=== PATIENT | male | born 1950 | race Caucasian/White ===

== ENCOUNTER → 2018-12-22 | Outpatient (CLI) | payer MEDICARE ==
--- NOTE | 2018-12-22 11:38 | US ---
EXAMINATION TYPE: US abdomen complete DATE OF EXAM: 12/22/2018 COMPARISON: NONE CLINICAL HISTORY: Abdominal bloating R14.0. RUQ pain, NPO EXAM MEASUREMENTS: Liver Length: 14.8 cm Gallbladder Wall: 0.2 cm CBD: 0.4 cm Spleen: 7.9 cm Right Kidney: 8.5 x 4.6 x 5.3 cm Left Kidney: 10.3 x 4.9 x 4.3 cm Pancreas: Tail obscured by overlying bowel gas Liver: wnl Gallbladder: wnl Evidence for sonographic Moraes's sign: neg CBD: wnl Spleen: wnl Right Kidney: appears small in size compared to contralateral kidney Left Kidney: wnl Upper IVC: wnl Abd Aorta: No AAA visualized The liver is homogenous. The intrahepatic portion of the IVC and proximal abdominal aorta are within normal limits. There is no evidence of cholelithiasis. Common bile duct is unremarkable. The visu alized portions of the pancreas are homogenous. The spleen is unremarkable. Kidneys are free of hy dronephrosis. No renal lesions are seen. IMPRESSION: 1. Diminutive right kidney. Otherwise unremarkable study.
== END | disposition home or self-care (01) ==
LOC: RADUSWWP 10:32
PROVIDERS: ATTEND Family Medicine
DX: N27.9 Small kidney, unspecified (principal); R14.0 Abdominal distension (gaseous)
CPT/HCPCS: 76700

== ENCOUNTER → 2018-12-29 | Outpatient (CLI) | payer MEDICARE ==
--- NOTE | 2018-12-29 09:06 | CTL ---
EXAMINATION TYPE: CT Low Dose Lung DATE OF EXAM ORDERED: 12/29/2018 COMPARISON: None HISTORY: . Low Dose CT Lung Screening CT DLP: 110.[address] CTDI: 3.0 mGy IV CONTRAST USED: None. SCREENING VISIT: First visit COMPARISON: None. TECHNIQUE: Low dose computed tomography scan was performed through the chest at 1 millimeter thick se ctions and reconstructed images in the coronal plane at [address] DIAGNOSTIC QUALITY: Satisfactory FINDINGS: LUNG NODULES: Not presentLeft lung: no nodules identified.Right lung: no nodules identified. LUNGS: COPD: Severity: None Fibrosis: Severity:None Lymph nodes: None Other findings: None RIGHT PLEURAL SPACE: Effusion: None Calcification: None Thickening: None Pneumothorax: None LEFT PLEURAL SPACE: Effusion: None Calcification: None Thickening: None Pneumothorax: None HEART: Heart Size: Mildly enlarged Coronary calcification: Mild Pericardial effusion: None OTHER FINDINGS: Upper abdomen: No significant abnormality Bony thorax: Degenerative changes Supraclavicular region: No significant abnormalityOther: No significant abnormalityI IMPRESSION: No distinct pulmonary nodules identified. FOLLOW UP CT CHEST RECOMMENDATION: Follow-up screening in one year CT LUNG RAD: LUNG RAD CATEGORY 1 negative
== END | disposition home or self-care (01) ==
LOC: RADCTMAIN 08:13
PROVIDERS: ATTEND Family Medicine
DX: Z12.2 Encounter for screening for malignant neoplasm of respiratory organs (principal); Z87.891 Personal history of nicotine dependence

== ENCOUNTER → 2019-02-18 | Outpatient (CLI) | payer MEDICARE ==
--- NOTE | 2019-02-18 13:31 | NM ---
EXAMINATION TYPE: NM hepatobiliary w EF DATE OF EXAM: 02/18/2019 COMPARISON: Ultrasound abdomen 12/22/2018 HISTORY: Right upper quadrant pain TECHNIQUE: After the intravenous administration of 3.6 mCi Tc 99m Mebrofenin hepatobiliary scintigrap hy is performed. Immediate images post injection. FINDINGS: There is satisfactory initial accumulation of tracer by the liver. The gallbladder is visualized wit hin 4 minutes. The small bowel activity is noted within 40 minutes. At one hour 8 ounces of oral en sure plus is given to mimic CCK and gallbladder ejection fraction is calculated at 75 %, in the mariann l range. Therefore there is no scintigraphic evidence of cystic or common bile duct obstruction to s uggest acute cholecystitis or gallbladder dyskinesia. IMPRESSION: Exam is within normal limits.
== END | disposition home or self-care (01) ==
LOC: RADNMMAIN 06:52
PROVIDERS: ATTEND Family Medicine
DX: R10.11 Right upper quadrant pain (principal)
CPT/HCPCS: 78226; A9537

== ENCOUNTER → 2019-05-25 | Outpatient (CLI) | payer MEDICARE ==
--- NOTE | 2019-05-26 12:49 | ECHOF ---
Referral Reason:I27.23 Pulmonary Hypertension MEASUREMENTS -------- HEIGHT: 175.3 cm WEIGHT: 89.8 kg BP: RVIDd: 4.8 cm (< 3.3) IVSd: 1.3 cm (0.6 - 1.1) LVIDd: 4.2 cm (3.9 - 5.3) LVPWd: 1.4 cm (0.6 - 1.1) IVSs: 1.7 cm LVIDs: 3.0 cm LVPWs: 2.0 cm LAESV Index (A-L): 17.04 ml/m Ao Diam: 2.7 cm (2.0 - 3.7) AV Cusp: 2.2 cm (1.5 - 2.6) LA Diam: 3.5 cm (2.7 - 3.8) MV E Anjum: 0.75 m/s MV DecT: 136 ms MV A Anjum: 0.86 m/s MV E/A Ratio: 0.87 RAP: 5.00 mmHg RVSP: 21.53 mmHg FINDINGS -------- Sinus rhythm. The left ventricular size is normal. There is mild concentric left ventricular hypertrophy. Overa ll left ventricular systolic function is low-normal with, an EF between 50 - 55 %. The diastolic fi lling pattern is normal for the age of the patient. The right ventricle is moderately enlarged. Left atrium is normal size by volume. The right atrium is mildly enlarged. Lumason used Interatrial and interventricular septum intact. The aortic valve was not well visualized. There is no evidence of aortic regurgitation. There is no evidence of aortic stenosis. Mild mitral annular calcification present. There is trace mitral regurgitation. Mild tricuspid regurgitation present. There is no evidence of pulmonary hypertension. The right v entricular systolic pressure, as measured by Doppler, is 21.53mmHg. There is no pulmonic regurgitation present. The aortic root size is normal. The inferior vena cava was not well visualized. There is no pericardial effusion. CONCLUSIONS -------- 1. Sinus rhythm. 2. The left ventricular size is normal. 3. There is mild concentric left ventricular hypertrophy. 4. Overall left ventricular systolic function is low-normal with, an EF between 50 - 55 %. 5. The diastolic filling pattern is normal for the age of the patient. 6. The right ventricle is moderately enlarged. 7. Left atrium is normal size by volume. 8. The right atrium is mildly enlarged. 9. Lumason used 10. Interatrial and interventricular septum intact. 11. The aortic valve was not well visualized. 12. There is no evidence of aortic regurgitation. 13. There is no evidence of aortic stenosis. 14. Mild mitral annular calcification present. 15. There is trace mitral regurgitation. 16. Mild tricuspid regurgitation present. 17. There is no evidence of pulmonary hypertension. 18. The right ventricular systolic pressure, as measured by Doppler, is 21.53mmHg. 19. There is no pulmonic regurgitation present. 20. The aortic root size is normal. 21. The inferior vena cava was not well visualized. 22. There is no pericardial effusion. CHEMICAL PROCESSING LABORER: Virginia Guadalupe RDCS
== END | disposition home or self-care (01) ==
LOC: RADECHMAIN 14:42
PROVIDERS: ATTEND Internal Medicine Sleep Medicine
DX: I07.1 Rheumatic tricuspid insufficiency (principal)
CPT/HCPCS: C8929; Q9950; 93306

== ENCOUNTER 2019-08-19 23:08 | Emergency (ER) | payer MEDICARE ==
[2019-08-19] MEDS ORDERED: IPRATROPIUM-ALBUTEROL 3 ML NEB INHALATION STA (23:58)
[2019-08-19] MEDS ORDERED: SODIUM CHLORIDE 0.9% 1,000 ML IV STA (23:58)
[2019-08-19] MEDS ORDERED: methylPREDNISolone SOD SUCCI 125 MG/2 ML VIAL IV STA (23:58)
--- NOTE | 2019-08-20 00:04 | ED ---
SOB HPI - General Chief Complaint: Shortness of Breath Stated Complaint: JUDITH Time Seen by Provider: 08/19/19 23:18 Source: EMS Mode of arrival: EMS - History of Present Illness Initial Comments: Aric is a 68-year-old male with a history of COPD for which she has a rescue inhaler and nebulizers at home. He is not oxygen dependent. Patient presents the ER today via EMS for evaluation of shortness of breath. Patient reports he's had progressively worsening shortness of breath throughout the day today, he's taken his usual medications including Mucinex, he's used both his rescue inhaler and his nebulizer with no improvement in his symptoms. He attempted to go to bed by his difficulty breathing got worse and he was unable to sleep comfortably in became anxious about her shortness breath and decided to come the ER for further evaluation. He reports subjective fevers no measured fevers. Mild body aches. Denies any chest pain or palpitations. Denies any nausea or v omiting. - Related Data Previous Rx's Medication Instructions Recorded predniSONE [Deltasone] 40 mg PO DAILY 5 Days #10 tablet 08/20/19 Allergies Allergy/AdvReac Type Severity Reaction Status Date / Time No Known Allergies Allergy Verified 08/19/19 23:15 Review of Systems ROS Statement: Those systems with pertinent positive or pertinent negative responses have been documented in the HPI. ROS Other: All systems not noted in ROS Statement are negative. Past Medical History Past Medical History: COPD, Hyperlipidemia, Hypertension, Prostate Disorder History of Any Multi-Drug Resistant Organisms: None Reported Additional Past Surgical History / Comment(s): cyst from left ear removed, Past Psychological History: No Psychological Hx Reported Smoking Status: Former smoker Past Alcohol Use History: None Reported Past Drug Use History: None Reported General Exam - General Exam Comments Initial Comments: Physical Exam GENERAL: Patient is well-developed and well-nourished. Patient is nontoxic and well- hydrated and is in no distress. HENT: Normocephalic, Atraumatic. EYES: PERRL, EOMI PULMONARY: Wheezing in all lung tillman Tachypnea CARDIOVASCULAR: There is a regular rate and rhythm without any murmurs gallops or rubs. ABDOMEN: Soft and nontender with normal bowel sounds. SKIN: Skin is clear with no lesions or rashes and otherwise unremarkable. : Deferred NEUROLOGIC: Patient is alert and oriented x3. Moving all extremities spontaneously MUSCULOSKELETAL: Normal extremities with adequate strength and full range of motion. No lower e xtremity swelling or edema. No calf tenderness. PSYCHIATRIC: Normal psychiatric evaluation. Course Vital Signs 08/19/19 08/20/19 08/20/19 23:11 00:40 00:50 Temperature 97.7 F 98.0 F Pulse Rate 80 87 85 Respiratory 18 20 Rate Blood Pressure 134/68 137/68 O2 Sat by Pulse 96 97 Oximetry 08/20/19 00:51 Temperature Pulse Rate 90 Respiratory Rate Blood Pressure O2 Sat by Pulse Oximetry Medical Decision Making - Medical Decision Making She was seen and evaluated history was obtained from patient, patient was subjective shortness of breath, mild hypoxia with oxygen saturations in the low 90s however he does have COPD. Labs, influenza swabs and chest x-ray were ordered Influenza and B were negative, chest x-ray no signs of pneumonia or any acute findings Labs are relatively unremarkable aside patient was reassessed after receiving a DuoNeb treatment. Patient reports feeling much better and is eager for discharge home. Patient comfortable plan for discharge home on oral antibiotics, close return parameters were discussed with patient and at bedside. 8 for follow-up was discussed patient was discharged home in stable condition. - Lab Data Result diagrams: 08/19/19 23:20 08/19/19 23:20 Lab Results 08/19/19 08/19/19 08/19/19 Range/Units 23:20 23:20 23:20 WBC 9.2 (3.8-10.6) k/uL RBC 4.51 (4.30-5.90) m/uL Hgb 13.9 (13.0-17.5) gm/dL Hct 41.0 (39.0-53.0) % MCV 91.1 (80.0-100.0) fL MCH 30.8 (25.0-35.0) pg MCHC 33.8 (31.0-37.0) g/dL RDW 13.8 (11.5-15.5) % Plt Count 260 (150-450) k/uL Neutrophils % 61 % Lymphocytes % 18 % Monocytes % 8 % Eosinophils % 7 % Basophils % 2 % Neutrophils # 5.6 (1.3-7.7) k/uL Lymphocytes # 1.7 (1.0-4.8) k/uL Monocytes # 0.8 (0-1.0) k/uL Eosinophils # 0.7 (0-0.7) k/uL Basophils # 0.2 (0-0.2) k/uL Sodium 133 L (137-145) mmol/L Potassium 4.4 (3.5-5.1) mmol/L Chloride 102 (98-107) mmol/L Carbon Dioxide 22 (22-30) mmol/L Anion Gap 9 mmol/L BUN 23 H (9-20) mg/dL Creatinine 1.05 (0.66-1.25) mg/dL Est GFR (CKD-EPI)AfAm 85 (>60 ml/min/1.73 sqM) Est GFR (CKD-EPI)NonAf 74 (>60 ml/min/1.73 sqM) Glucose 105 H (74-99) mg/dL Calcium 9.8 (8.4-10.2) mg/dL Total Bilirubin 0.6 (0.2-1.3) mg/dL AST 29 (17-59) U/L ALT 30 (4-49) U/L Alkaline Phosphatase 69 (38-126) U/L Total Protein 6.6 (6.3-8.2) g/dL Albumin 4.0 (3.5-5.0) g/dL Influenza Type A RNA Not Detected (Not Detectd) Influenza Type B (PCR) Not Detected (Not Detectd) Disposition Clinical Impression: COPD exacerbation Disposition: HOME SELF-CARE Condition: Stable Additional Instructions: Continue breathing treatments every 4-6h Prednisone daily x5 days Follow up with PCP Return to ER for any worsening or development of new or concerning symptoms Prescriptions: predniSONE [Deltasone] 40 mg PO DAILY 5 Days #10 tablet Is patient prescribed a controlled substance at d/c from ED?: No Referrals: Edi Mcdonald MD [Primary Care Provider] - 1-2 days
[2019-08-20 00:13] LABS: Basophils # (A) 0.2 k/uL (0-0.2); Basophils % (A) 2 %; Eosinophils # (A) 0.7 k/uL (0-0.7); Eosinophils % (A) 7 %; HGB 13.9 gm/dL (13.0-17.5); Lymphocytes # (A) 1.7 k/uL (1.0-4.8); Lymphocytes % (A) 18 %; MCH 30.8 pg (25.0-35.0); MCHC 33.8 g/dL (31.0-37.0); MCV 91.1 fL (80.0-100.0); Mean Platelet Volume 7.7; Monocytes # (A) 0.8 k/uL (0-1.0); Monocytes % (A) 8 %; Neutrophils # (A) 5.6 k/uL (1.3-7.7); Neutrophils % (A) 61 %; Platelet Count 260 k/uL (150-450); RBC 4.51 m/uL (4.30-5.90); RDW 13.8 % (11.5-15.5); WBC 9.2 k/uL (3.8-10.6)
[2019-08-20 00:19] LABS: Calcium 9.8 mg/dL (8.4-10.2); Potassium 4.4 mmol/L (3.5-5.1); Total Bilirubin 0.6 mg/dL (0.2-1.3); Total Protein 6.6 g/dL (6.3-8.2)
--- NOTE | 2019-08-20 00:21 | XR ---
EXAMINATION TYPE: XR chest 2V DATE OF EXAM: 08/20/2019 COMPARISON: NONE HISTORY: Difficulty breathing TECHNIQUE: 2 views FINDINGS: Heart is normal. Lungs are clear of infiltrate. There is no pleural effusion. Bony thorax i s intact. There are no hilar masses. IMPRESSION: No active cardiopulmonary disease. Normal heart.
[2019-08-20 00:51] VITALS: BP 137/68; PULSE 90; RESP 20; TEMP 98
== END 2019-08-20 01:37 | disposition home or self-care (01) ==
LOC: EC 23:08
DX: J44.1 Chronic obstructive pulmonary disease with (acute) exacerbation (principal); R09.02 Hypoxemia; Z87.891 Personal history of nicotine dependence
CPT/HCPCS: 36415 ×2; 94640; 93005; 80053; 85025; 87040; 87502; 71046; 99285; 96374; 96361; J2930

== ENCOUNTER 2020-01-07 19:48 | Inpatient (IN) | payer MEDICARE ==
[2020-01-07] MEDS ORDERED: SODIUM CHLORIDE 0.9% 500 ML 500 ML IV STA (20:28)
[2020-01-07] MEDS ORDERED: methylPREDNISolone SOD SUCCI 125 MG/2 ML VIAL IV STA (20:28)
[2020-01-07] MEDS ORDERED: IPRATROPIUM-ALBUTEROL 3 ML NEB INHALATION STA (20:28)
[2020-01-07] MEDS ORDERED: ALBUTEROL NEB (CONC) 2.5 MG/0.5 ML INHALATION STA (20:29)
[2020-01-07] MEDS ORDERED: ONDANSETRON 4 MG/2 ML VIAL IVP STA (20:29)
[2020-01-07] MEDS ORDERED: MORPHINE SULFATE 4 MG/ML SYRINGE IVP STA (20:29)
[2020-01-07 20:44] LABS: Basophils % (A) 0 %; Eosinophils # (A) 0.1 k/uL (0-0.7); Eosinophils % (A) 1 %; HGB 14.9 gm/dL (13.0-17.5); Lymphocytes # (A) 1.1 k/uL (1.0-4.8); Lymphocytes % (A) 10 %; MCH 31.8 pg (25.0-35.0); MCHC 33.9 g/dL (31.0-37.0); Mean Platelet Volume 7.5; Monocytes # (A) 0.7 k/uL (0-1.0); Monocytes % (A) 6 %; Neutrophils # (A) 8.8 k/uL (1.3-7.7); Neutrophils % (A) 81 %; Platelet Count 256 k/uL (150-450); RBC 4.68 m/uL (4.30-5.90); RDW 13.5 % (11.5-15.5); WBC 10.9 k/uL (3.8-10.6)
--- NOTE | 2020-01-07 20:47 | ED ---
General Adult HPI - General Chief complaint: Upper Respiratory Infection Stated complaint: Poss broken rib Time Seen by Provider: 01/07/20 20:02 Source: patient Mode of arrival: wheelchair Limitations: no limitations - History of Present Illness Initial comments: 69-year-old male patient with past medical history significant for COPD and hypertension presents to the emergency department today for evaluation of shortness of breath and cough. Patient states his been sick for a little over 2 weeks. States he did see his primary care physician and his specification consultant. States that yesterday he saw the specification consultant and was started on home oxygen therapy as well as multiple prescriptions. Prescriptions included doxycycline, theophylline, and taper of prednisone. Patient states that today he felt worse. Is having difficulty ambulating and performing his normal daily tasks. Patient is reporting cough with occasional sputum production. Denies fever or chills. States he is also having very sharp stabbing left pain to the left flank region. Denies any injuries. Denies any hemoptysis. Denies any hematuria, dysuria, urinary frequency, urinary urgency. Patient denies any recent rash, abdominal pain, nausea, vomiting, diarrhea, constipation, numbness, tingling, dizziness, weakness, headache, visual changes, or any other complaints. - Related Data Previous Rx's Medication Instructions Recorded predniSONE [Deltasone] 40 mg PO DAILY 5 Days #10 tablet 08/20/19 Allergies Allergy/AdvReac Type Severity Reaction Status Date / Time No Known Allergies Allergy Verified 08/19/19 23:15 Review of Systems ROS Statement: Those systems with pertinent positive or pertinent negative responses have been documented in the HPI. ROS Other: All systems not noted in ROS Statement are negative. Past Medical History Past Medical History: COPD, Hyperlipidemia, Hypertension, Prostate Disorder History of Any Multi-Drug Resistant Organisms: None Reported Additional Past Surgical History / Comment(s): cyst from left ear removed, Past Psychological History: No Psychological Hx Reported Smoking Status: Former smoker Past Alcohol Use History: None Reported Past Drug Use History: None Reported General Exam Limitations: no limitations General appearance: alert, in no apparent distress, other (This is a well- developed, well-nourished adult male patient in no acute distress. Vital signs upon presentation are temperature 98.2F, pulse 81, respirations 18, blood pressure 155/77, pulse ox 98% on room air.) Eye exam: Present: normal appearance, PERRL, EOMI. Absent: scleral icterus, conjunctival injection, periorbital swelling ENT exam: Present: normal exam, normal oropharynx, mucous membranes moist Respiratory exam: Present: respiratory distress (Mild respiratory distress exhibited by tachypnea, abdominal accessory muscle use), wheezes (Expiratory wheezing in the posterior lung tillman), accessory muscle use. Absent: normal lung sounds bilaterally, rales, rhonchi, stridor Cardiovascular Exam: Present: regular rate, normal rhythm, normal heart sounds. Absent: systolic murmur, diastolic murmur, rubs, gallop, clicks GI/Abdominal exam: Present: soft, normal bowel sounds. Absent: distended, tenderness, guarding, rebound, rigid Neurological exam: Present: alert, oriented X3, CN II-XII intact Psychiatric exam: Present: normal affect, normal mood Skin exam: Present: warm, dry, intact, normal color. Absent: rash Course Vital Signs 01/07/20 01/07/20 01/07/20 19:53 20:15 21:27 Temperature 98.2 F 98.5 F Pulse Rate 81 75 73 Respiratory 18 26 H Rate Blood Pressure 155/77 142/92 O2 Sat by Pulse 98 98 Oximetry 01/07/20 01/07/20 01/07/20 21:36 21:40 23:14 Temperature 98.2 F Pulse Rate 73 72 78 Respiratory 20 32 H Rate Blood Pressure 155/83 155/97 O2 Sat by Pulse Oximetry EKG Findings - EKG Comments: EKG Findings:: EKG obtained at 2006 shows normal sinus rhythm with a ventricular rate is 77, MI interval 1:30, QRS duration 84, QT 366, QTC 414. No evidence of ST elevation or depression. Medical Decision Making - Medical Decision Making 69-year-old male patient presents to the emergency department today for evaluation of left posterior rib pain, shortness of breath, cough. Patient states that symptoms are the last 2 weeks. He has completed steroids, antibiotics, just started a new course yesterday. Physical examination reveals tachypnea, abdominal accessory muscle use, expiratory wheezing. Labs reviewed and are unremarkable. Chest x-ray is obtained and shows no acute cardiopulmonary process. Left rib x-rays were negative. Upon reevaluation does report mild improvement of his breathing but is still having significant pain to the left posterior ribs. We will admit for COPD exacerbation and further evaluation. Coronavirus testing is pending. - Lab Data Result diagrams: 01/07/20 20:15 01/07/20 20:15 Lab Results 01/07/20 01/07/20 01/07/20 Range/Units 20:15 20:15 20:15 WBC 10.9 H (3.8-10.6) k/uL RBC 4.68 (4.30-5.90) m/uL Hgb 14.9 (13.0-17.5) gm/dL Hct 44.0 (39.0-53.0) % MCV 94.0 (80.0-100.0) fL MCH 31.8 (25.0-35.0) pg MCHC 33.9 (31.0-37.0) g/dL RDW 13.5 (11.5-15.5) % Plt Count 256 (150-450) k/uL Neutrophils % 81 % Lymphocytes % 10 % Monocytes % 6 % Eosinophils % 1 % Basophils % 0 % Neutrophils # 8.8 H (1.3-7.7) k/uL Lymphocytes # 1.1 (1.0-4.8) k/uL Monocytes # 0.7 (0-1.0) k/uL Eosinophils # 0.1 (0-0.7) k/uL Basophils # 0.0 (0-0.2) k/uL PT (9.0-12.0) sec INR (<1.2) APTT (22.0-30.0) sec Sodium (137-145) mmol/L Potassium (3.5-5.1) mmol/L Chloride (98-107) mmol/L Carbon Dioxide (22-30) mmol/L Anion Gap mmol/L BUN (9-20) mg/dL Creatinine (0.66-1.25) mg/dL Est GFR (CKD-EPI)AfAm (>60 ml/min/1.73 sqM) Est GFR (CKD-EPI)NonAf (>60 ml/min/1.73 sqM) Glucose (74-99) mg/dL Plasma Lactic Acid Hoang 1.3 (0.7-2.0) mmol/L Calcium (8.4-10.2) mg/dL Troponin I <0.012 (0.000-0.034) ng/mL 01/07/20 01/07/20 Range/Units 20:15 20:15 WBC (3.8-10.6) k/uL RBC (4.30-5.90) m/uL Hgb (13.0-17.5) gm/dL Hct (39.0-53.0) % MCV (80.0-100.0) fL MCH (25.0-35.0) pg MCHC (31.0-37.0) g/dL RDW (11.5-15.5) % Plt Count (150-450) k/uL Neutrophils % % Lymphocytes % % Monocytes % % Eosinophils % % Basophils % % Neutrophils # (1.3-7.7) k/uL Lymphocytes # (1.0-4.8) k/uL Monocytes # (0-1.0) k/uL Eosinophils # (0-0.7) k/uL Basophils # (0-0.2) k/uL PT 10.0 (9.0-12.0) sec INR 1.0 (<1.2) APTT 21.5 L (22.0-30.0) sec Sodium 133 L (137-145) mmol/L Potassium 5.3 H (3.5-5.1) mmol/L Chloride 101 (98-107) mmol/L Carbon Dioxide 20 L (22-30) mmol/L Anion Gap 12 mmol/L BUN 27 H (9-20) mg/dL Creatinine 0.95 (0.66-1.25) mg/dL Est GFR (CKD-EPI)AfAm >90 (>60 ml/min/1.73 sqM) Est GFR (CKD-EPI)NonAf 82 (>60 ml/min/1.73 sqM) Glucose 122 H (74-99) mg/dL Plasma Lactic Acid Hoang (0.7-2.0) mmol/L Calcium 9.7 (8.4-10.2) mg/dL Troponin I (0.000-0.034) ng/mL - Radiology Data Radiology results: report reviewed, image reviewed X-ray of the left ribs are obtained. Report is reviewed in its entirety. Impression by Dr. Cancino shows negative left wrist exam. Two-view x-ray of the chest is obtained. Report was reviewed in its entirety. Impression by Dr. Ostermann shows no active cardiopulmonary disease. Normal heart. No change. Disposition Clinical Impression: COPD exacerbation Disposition: ADMITTED IP TO THIS HOSP Condition: Serious Decision to Admit Reason: Admit from EC Decision Date: 01/07/20 Decision Time: 23:43
[2020-01-07 20:56] LABS: African American GFR (CKD) >90 (>60 ml/min/1.73 sqM); Anion Gap 12 mmol/L; Blood Urea Nitrogen 27 mg/dL (9-20); Calcium 9.7 mg/dL (8.4-10.2); Carbon Dioxide 20 mmol/L (22-30); Chloride 101 mmol/L (98-107); Glucose 122 mg/dL (74-99); Non-African American GFR(CKD) 82 (>60 ml/min/1.73 sqM); Potassium 5.3 mmol/L (3.5-5.1); Sodium 133 mmol/L (137-145)
[2020-01-07 20:58] LABS: Partial Thromboplastin Time 21.5 sec (22.0-30.0)
--- NOTE | 2020-01-07 21:36 | XR ---
EXAMINATION TYPE: XR chest 2V DATE OF EXAM: 01/07/2020 COMPARISON: 01/05/2020 HISTORY: Rib pain TECHNIQUE: 2 views FINDINGS: Heart and mediastinum are normal. Lungs are clear. Diaphragm is normal. Costophrenic angles are clear. Bony thorax appears intact. IMPRESSION: No active cardiopulmonary disease. Normal heart. No change.
--- NOTE | 2020-01-07 21:37 | XR ---
EXAMINATION TYPE: XR ribs LT DATE OF EXAM: 01/07/2020 COMPARISON: NONE HISTORY: Left rib pain TECHNIQUE: 5 views FINDINGS: There is no pleural effusion or pneumothorax. Left lung is clear of infiltrate. I see no ev idence of a left-sided rib fracture. Left shoulder appears intact. IMPRESSION: Negative left rib exam.
[2020-01-07] MEDS ORDERED: HYDROmorphone 0.5 MG/0.5 ML SYRINGE IVP STA (22:03)
[2020-01-07] MEDS ORDERED: KETOROLAC 30 MG/ML 1 ML VIAL IVP STA (22:03)
[2020-01-07] MEDS ORDERED: IPRATROPIUM-ALBUTEROL 3 ML NEB INHALATION PRN (23:41)
[2020-01-08] MEDS: methylPREDNISolone SOD SUCCI 125 MG/2 ML VIAL IV SCH ×5 (00:53→23:15)
[2020-01-08] MEDS: HYDROcodone/APAP 5-325MG 1 EACH TAB PO PRN (05:57)
[2020-01-08] MEDS: IPRATROPIUM-ALBUTEROL 3 ML NEB INHALATION SCH ×4 (09:08→21:55)
[2020-01-08] MEDS ORDERED: PROMETHAZINE 25 MG TAB PO PRN (09:21)
--- NOTE | 2020-01-08 09:59 | P.HPIM ---
History of Present Illness This is a pleasant 69 years old male with past medical history of COPD and he follows up with Dr. Garcia, hyperlipidemia, hypertension. Presents because of dyspnea and cough with phlegm for about 2 weeks duration, although he had it for sometime but it got worse over the last 2 weeks. He saw his manager customer Dr. Garcia (originally he follows up with Dr. gates) about 3-4 days ago when he notices oxygen was low, he put him on doxycycline, theophylline and Taper prednisone as well as home oxygen with with no improvement he decided to come to Hospital proceed. Especially patient was starting complaining of from stabbing like pain on the left lower chest with coughing His cough is with clear phlegm with little tinge ofwith little. No change in urine or bowel habits. No fever He quit smoking about 2-1/2 years ago. No alcohol or illicit drugs vitals are stable and he is saturating 95% on 2 L oxygen via Nasal cannula. WBCs 10.9 K, INR 1.0, sodium 133, potassium 5.3, creatinine 0.9. Troponin less than 0.012 Review of Systems CONSTITUTIONAL: No fever, no malaise, no fatigue. HEENT: No recent visual problems or hearing problems. Denied any sore throat. CARDIOVASCULAR: No orthopnea, PND, no palpitations, no syncope. PULMONARY: No shortness of breath, no cough, no hemoptysis. GASTROINTESTINAL: No diarrhea, no nausea, no vomiting, no abdominal pain. Normoactive bowel sounds. NEUROLOGICAL: No headaches, no weakness, no numbness. HEMATOLOGICAL: Denies any bleeding or petechiae. GENITOURINARY: Denies any burning micturition, frequency, or urgency. MUSCULOSKELETAL/RHEUMATOLOGICAL: Denies any joint pain, swelling, or any muscle pain. ENDOCRINE: Denies any polyuria or polydipsia. Past Medical History Past Medical History: COPD, Hyperlipidemia, Hypertension, Prostate Disorder History of Any Multi-Drug Resistant Organisms: None Reported Additional Past Surgical History / Comment(s): cyst from left ear removed, Past Psychological History: No Psychological Hx Reported Smoking Status: Former smoker Past Alcohol Use History: None Reported Past Drug Use History: None Reported Medications and Allergies Home Medications Medication Instructions Recorded Confirmed Type predniSONE [Deltasone] 40 mg PO DAILY 5 Days #10 tablet 08/20/19 Rx Allergies Allergy/AdvReac Type Severity Reaction Status Date / Time No Known Allergies Allergy Verified 08/19/19 23:15 Physical Exam Vitals: Vital Signs Temp Pulse Pulse Resp BP BP Pulse Ox 01/08/20 09:27 84 01/08/20 09:08 80 01/08/20 07:00 97.9 F 82 20 165/75 95 01/08/20 00:27 98.0 F 79 19 151/77 94 L 01/07/20 23:14 98.2 F 78 32 H 155/97 01/07/20 21:40 72 01/07/20 21:36 73 20 155/83 01/07/20 21:27 73 01/07/20 20:15 98.5 F 75 26 H 142/92 98 01/07/20 19:53 98.2 F 81 18 155/77 98 Intake and Output 01/07/20 01/08/20 01/08/20 22:59 06:59 14:59 Other: # Voids 2 Weight 93.44 kg 93.44 kg GENERAL: The patient is alert and oriented x3, not in any acute distress. Well developed, well nourished. HEENT: Pupils are round and equally reacting to light. EOMI. No scleral icterus. No conjunctival pallor. Normocephalic, atraumatic. No pharyngeal erythema. No thyromegaly. CARDIOVASCULAR: S1 and S2 present. No murmurs, rubs, or gallops. -PULMONARY: Chest is clear to auscultation, bilateral scattered wheezing ABDOMEN: Soft, nontender, nondistended, normoactive bowel sounds. No palpable organomegaly. MUSCULOSKELETAL: No joint swelling or deformity. EXTREMITIES: No cyanosis, clubbing, or pedal edema. NEUROLOGICAL: Gross neurological examination did not reveal any focal deficits. SKIN: No rashes. No petechiae Results CBC & Chem 7: 01/07/20 20:15 01/07/20 20:15 Labs: Abnormal Lab Results - Last 24 Hours (Table) 01/07/20 01/07/20 01/07/20 Range/Units 20:15 20:15 20:15 WBC 10.9 H (3.8-10.6) k/uL Neutrophils # 8.8 H (1.3-7.7) k/uL APTT 21.5 L (22.0-30.0) sec Sodium 133 L (137-145) mmol/L Potassium 5.3 H (3.5-5.1) mmol/L Carbon Dioxide 20 L (22-30) mmol/L BUN 27 H (9-20) mg/dL Glucose 122 H (74-99) mg/dL Thrombosis Risk Factor Assmnt - Choose All That Apply Each Factor Represents 1 point: Obesity (BMI >25) Each Risk Factor Represents 2 Points: Age 61-74 years Thrombosis Risk Factor Assessment Total Risk Factor Score: 3 Thrombosis Risk Factor Assessment Level: Moderate Risk Assessment and Plan Assessment: Acute COPD exacerbation Acute hypoxic respiratory failure Left lower lateral chest wall pain with coughing Hypertension Hyperlipidemia Plan: This is a pleasant 69 years old male who presents with COPD acute exacerbation. Continue with steroids, doxycycline and oxygen as needed. Pulmonary consult Labs and medication were reviewed.. Continue same treatment. Continue with symptomatic treatment. Resume home medication. Monitor lytes and vitals. DVT and GI prophylaxis. Further recommendations of the clinical course of the patient DVT prophylaxis: Subcutaneous Lovenox GI prophylaxis: Pepcid
[2020-01-08] MEDS: MORPHINE SULFATE 4 MG/ML SYRINGE IVP PRN ×2 (10:09→15:00)
[2020-01-08] MEDS: AZITHROMYCIN 500 MG TAB PO SCH (10:10)
[2020-01-08] MEDS: ENOXAPARIN 40 MG/0.4 ML SYRINGE SQ SCH (10:14)
[2020-01-08] MEDS: guaiFENesin-DM 100-10MG/5ML 10 ML CUP PO SCH ×3 (11:21→23:15)
--- NOTE | 2020-01-08 11:23 | CT ---
EXAMINATION TYPE: CT chest angio for PE DATE OF EXAM: 01/08/2020 COMPARISON: Previous study dated 12/29/2018. HISTORY: Dyspnea CT DLP: 511.6 mGycm Automated exposure control for dose reduction was used. CONTRAST: CT Chest for pulmonary embolism performed with with IV Contrast, patient injected with 100 mL of Isov ue 370. FINDINGS: There has some atelectasis along the major fissure on the right. There is breathing motion artifact on this study. No parenchymal lesion is seen. There is no significant axillary, mediastinal or hilar adenopathy. There is no evidence of pulmonary embolus. The aortic root is mildly prominent measuring 3.8 cm. The remainder the aorta is normal in caliber wi thout evidence of dissection. There is no evidence of pleural or pericardial fluid. The heart is not enlarged. Limited views of the upper abdomen are degraded due to 2 patient respiration show no definite abnorma lity. There is hypertrophic spondylosis within the spine. IMPRESSION: 1. THIS EXAMINATION IS DEGRADED BY EXCESSIVE BREATHING MOTION ARTIFACT. 2. THIS EXAMINATION IS NEGATIVE FOR PULMONARY EMBOLUS. 3. MILD ECTASIA OF THE ROOT OF THE AORTA.
--- NOTE | 2020-01-08 12:52 | P.CNPUL ---
History of Present Illness Consult date: 01/08/20 Reason for consult: dyspnea, COPD History of present illness: a 69-year-old male patient, who was hospitalized yesterday because of worsening shortness of breath. The patient was diagnosed with COPD exacerbation and was admitted to the hospital for that reason to optimize his overall poor status. I had the chance to evaluate this patient my office for the first time on 12/23/2019. He was coming to see me in the office to establish himself as a patient. The patient suffers from COPD and obstructive sleep apnea. He has seen Dr. Valladares and he was not satisfied with his services and he wants establish himself with us in our office. In summary, the patient is a ex-smoker. He cares about [id number] smoking history and the patient has quit smoking and around 2 years ago. He is known to have COPD. I do not have his official PFT, however, bryant gipson on the reported history tells that he is FEV1 is ranged around 35-38%. He was started on Anoro one inhalation a day in addition to Ventolin rescue inhaler and albuterol updrafts around 3-4 times a day. He is still requiring the albuterol several times a day. He gets some relief while doing his rescue inhalers. 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 He has gained weight over the years and currently he is up to 215 pounds. The patient has exertional dyspnea. Is able to walk longer distances he walks slow. Minimal coffeeand can sputum production. No hemoptysis. No pleurisy. He is latest chest x-ray that was done at [facility] on 08/20/2019 showed no acute cardio pulmonary disease and the findings were essentially within normal limits. No previous hospitalizations for COPD related complications or pneumonias. I reviewed his records. The patient was kept on Anoro 1 inhalation a day and he was asked to use Ventolin metastatic bases addit ion to albuterol nebulized she was on a when necessary basis. The patient was given a 6 minute walk and he did not qualify for home oxygen as the patient's pulse ox remained above 93%. He was subsequently seen again in our office on 01/05/2024 worsening shortness of breath. He was given prednisone burst taper and doxycycline at [facility] has been switched to Trelegy. Meanwhile, the patient's breathing got worse and the patient was admitted to the hospital for further care. He was having worsening in cough and he felt a snap in his left chest and he felt that he broke a rib. For that reason, he came into the hospital. Chest x-ray showed no evidence of any fractures. No evidence of any pneumonias. Redness to be intact on the x-ray findings. . He is known to have obstructive sleep apnea and is maintained on CPAP at a pressure maximum centimeters of water. He is using dreamware knows low. He has been compliant with his other comorbidities include hypertension, hyperlipidemia, BPH and obesity. He has a white second of 10.9. Correlation profile is within normal limits. Electrodes are all within normal limits. Troponins are negative. COVID 19 evaluation is pending. Chest shows no acute abnormalities. Review of Systems Comprehensive General Adult ROS Reported by Patient Constitutional Constitutional: no fever, no night sweats, no significant weight loss, no exercise intolerance, weight gain (15lbs) Eyes Eyes: no dry eyes, no vision change, no irritation ENMT Ears: no difficulty hearing, no ear pain Nose: no frequent nosebleeds, no nose problems, no sinus problems Mouth/Throat: no sore throat, no bleeding gums, no snoring, no dry mouth, no mouth ulcers, no oral abnormalities, no teeth problems Cardiovascular Cardiovascular: no chest pain, no arm pain on exertion, no shortness of breath when lying down, no palpitations, no known heart murmur, shortness of breath when walking Respiratory Respiratory: no wheezing, no coughing up blood, cough, shortness of breath, sleep apnea Gastrointestinal Gastrointestinal: no abdominal pain, no nausea, no vomiting, no constipation, normal appetite, no diarrhea, not vomiting blood, no dyspepsia, no GERD Genitourinary Genitourinary: no incontinence, no difficulty urinating, no hematuria, no increased frequency Musculoskeletal Musculoskeletal: no muscle aches, no muscle weakness, no arthralgias/joint pain, no back pain, no swelling in the extremities Integumentary Skin: no abnormal mole, no jaundice, no rashes, no laceration Neurologic Neurologic: no loss of consciousness, no weakness, no numbness, no seizures, no dizziness, no migraines, no headaches, no tremor Psychiatric Psych: no depression, feeling safe in a relationship, no alcohol abuse, no anxiety, no hallucinations, no suicidal thoughts, sleep disturbances Endocrine Endocrine: fatigue Hematologic/Lymphatic Hematologic/Lymphatic no swollen glands, no bruising, no excessive bleeding Allergic/Immunologic Allergy/Immunologic: no runny nose, no sinus pressure, no itching, no hives, no frequent sneezing Past Medical History Past Medical History: COPD, Hyperlipidemia, Hypertension, Prostate Disorder History of Any Multi-Drug Resistant Organisms: None Reported Additional Past Surgical History / Comment(s): cyst from left ear removed, Past Psychological History: No Psychological Hx Reported Smoking Status: Former smoker Past Alcohol Use History: None Reported Past Drug Use History: None Reported Medications and Allergies Home Medications Medication Instructions Recorded Confirmed Type Albuterol Inhaler [Ventolin Hfa 2 puff INHALATION RT-Q6H PRN 01/08/20 01/08/20 History Inhaler] Albuterol Nebulized [Ventolin 2.5 mg INHALATION RT-QID 01/08/20 01/08/20 History Nebulized] Aspirin [[place] Aspirin EC] 81 mg PO DAILY 01/08/20 01/08/20 History Atorvastatin [Lipitor] 20 mg PO DAILY 01/08/20 01/08/20 History Cinnamon Bark [Cinnamon] 1,000 mg PO DAILY 01/08/20 01/08/20 History Collagen + Vitamin C 2500mg 1 tab PO TID 01/08/20 01/08/20 History Doxycycline Hyclate [Vibramycin] 100 mg PO BID 01/08/20 01/08/20 History Fluticasone/Umeclidin/Vilanter 1 puff INHALATION RT-DAILY 01/08/20 01/08/20 History [Trelegy Ellipta 100-62.5-25] Mikayla Root 550mg 1 tab PO DAILY 01/08/20 01/08/20 History Magnesium Malate 1000mg 1 tab PO DAILY 01/08/20 01/08/20 History Milk Thistle 150 mg PO DAILY 01/08/20 01/08/20 History Niacin 500 mg PO QID 01/08/20 01/08/20 History Potassium Citrate 90mg 1 tab PO DAILY 01/08/20 01/08/20 History Tamsulosin [Flomax] 0.4 mg PO DAILY 01/08/20 01/08/20 History Theophylline Anhydrous 200 mg PO BID 01/08/20 01/08/20 History [Theophylline] Ubidecarenone [Co Q-10] 100 mg PO DAILY 01/08/20 01/08/20 History Umeclidinium Brm/Vilanterol Tr 1 puff INHALATION DIRECTED 01/08/20 01/08/20 History [Anoro Ellipta 62.5-25 Mcg INH] Zinc 50 mg PO DAILY 01/08/20 01/08/20 History amLODIPine BESYLATE/BENAZEPRIL 1 cap PO DAILY 01/08/20 01/08/20 History [amLODIPine BESYLATE/BENAZEPRIL 10-20 MG] predniSONE See Taper PO DAILY 01/08/20 01/08/20 History rOPINIRole HCL [Requip] 1 mg PO HS 01/08/20 01/08/20 History Allergies Allergy/AdvReac Type Severity Reaction Status Date / Time No Known Allergies Allergy Verified 01/08/20 11:35 Physical Exam Vitals: Vital Signs Temp Pulse Pulse Resp BP BP Pulse Ox 01/08/20 12:03 88 01/08/20 11:56 82 01/08/20 09:27 84 01/08/20 09:08 80 01/08/20 07:00 97.9 F 82 20 165/75 95 01/08/20 00:27 98.0 F 79 19 151/77 94 L 01/07/20 23:14 98.2 F 78 32 H 155/97 01/07/20 21:40 72 01/07/20 21:36 73 20 155/83 01/07/20 21:27 73 01/07/20 20:15 98.5 F 75 26 H 142/92 98 01/07/20 19:53 98.2 F 81 18 155/77 98 Intake and Output 01/07/20 01/08/20 01/08/20 22:59 06:59 14:59 Other: # Voids 2 Weight 93.44 kg 93.44 kg General Appearance no diaphoresis, no respiratory distress, speech not interrupted by breaths, no dyspnea, no pallor, not cachectic, well nourished, appears well, obesity HEENT no pursed lip breathing, no jugular venous distention, no mucous membrane cyanosis, no perioral cyanosis, mallampati classification: class 1, Mallampati Classification: Class 4 Chest no barrel chest, no retractions, no sternocleidomastoid muscle contractions, no supraclavicular retractions, no intercostal retractions, no prolonged expiratory wheezing, no decreased air movement, no rhonchi, no hyperinflation, (normal) adventitious sounds: rales / crackles: bilaterally: midlung tillman, decreased air movement Heart no right ventricular heave, no distant heart sounds, no s3 gallop, (normal) jugular vein: jugular venous distention: by 0cm, (normal) jugular vein GI bowel sounds: hyperactive (borborygmi), bowel sounds: diminished or absent Extremities no cyanosis, no clubbing, no edema Neurologic no decreased mental status, no somnolence, no confusion Assisstive Devices: ambulates with no assitive devices Gait and Mobility: gait WNL, full weight bearing Examination of the skin revealed no evidence of significant rashes, suspicious appearing nevi or other concerning lesions. Results - Laboratory Findings CBC and BMP: 01/07/20 20:15 01/07/20 20:15 PT/INR, D-dimer PT 10.0 sec (9.0-12.0) 01/07/20 20:15 INR 1.0 (<1.2) 01/07/20 20:15 Abnormal lab findings: Abnormal Labs 01/07/20 01/07/20 01/07/20 20:15 20:15 20:15 WBC 10.9 H Neutrophils # 8.8 H APTT 21.5 L Sodium 133 L Potassium 5.3 H Carbon Dioxide 20 L BUN 27 H Glucose 122 H - Diagnostic Findings Chest x-ray: image reviewed Assessment and Plan Plan: 1 acute COPD exacerbation with secondary shortness of breath. Doubt infection such as bronchitis or pneumonia. Doubt pulmonary embolism. Doubt Covid 19 infection. 2 severe chronic obstructive pulmonary disease, this patient has severe COPD, currently on Anoro one inhalation a day in addition to Ventolin rescue inhaler albuterol updrafts on an as-needed basis. We will perform a full pulmonary function test at a later stage. For now, his condition is stable. He has exertional dyspnea. During a recent evaluation our office, he was changed from Anoro to Trilogy and he was also offered oxygen therapy. 3 obstructive sleep apnea syndrome currently on a CPAP pressure of 9 cm of water. Offered a dreamware nose pillow for the patient to use, medium size. I check her compliance data. He is averaging more than 4 hours and 30% of the time. Averaging more than 5 hours of CPAP use per night. Treatment is successful and his AHI is down to 3.5. Implement the sleep hygiene measures. Continue same CPAP pressures for now. 4 hypertensive disorder 5 hyperlipidemia, inactive in stable 6 benign prostatic hyperplasia , inactive in stable 7 obesity 8 muscular skeletal left-sided chest wall pain, no evidence of any fracture based on x-ray and the CAT scan findings. Plan CT angios, the chest Covid 19 evaluation is pending Promethazine for cough IV Solu Medrol 60 mg every 6 hours DuoNeb nebulized treatments 4 times a day [id number] Zithromax as an empiric antibiotic coverage [place] for pain control We'll continue to follow
[2020-01-08] MEDS ORDERED: ALBUTEROL HFA INHALER INHALATION PRN (13:18)
[2020-01-08] MEDS ORDERED: HEPARIN SODIUM,PORCINE 5,000 UNIT/ML 1 ML VIAL SQ SCH ×3 (16:00→21:00)
[2020-01-08] MEDS: FAMOTIDINE 20 MG/2 ML VIAL IV SCH (20:41)
[2020-01-08] MEDS ORDERED: DOXYCYCLINE 100 MG CAP PO SCH (21:00)
[2020-01-09] MEDS: methylPREDNISolone SOD SUCCI 125 MG/2 ML VIAL IV SCH ×4 (05:43→23:04)
--- NOTE | 2020-01-09 08:19 | P.PN ---
Subjective Progress Note Date: 01/09/20 Principal diagnosis: exacerbation of COPD. This is a continue progress on a 69-year-old white male with history of worsening COPD. He has been prednisone dependent for the last several months intermittently. He states he is frustrated because he is not improving. 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 On a pleurisy Objective - Vital Signs Vital signs: Vital Signs Temp 97.8 F 01/09/20 07:00 Pulse 86 01/09/20 07:00 Resp 22 01/09/20 07:00 BP 158/82 01/09/20 07:00 Pulse Ox 96 01/09/20 07:00 Intake & Output 01/08/20 01/09/20 01/09/20 18:59 06:59 18:59 Intake Total 100 Balance 100 Intake: Oral 100 Other: # Voids 4 1 - Constitutional General appearance: Present: mild distress - EENT Eyes: Absent: abnormal pupil - Neck Neck: Absent: lymphadenopathy - Respiratory Respiratory: bilateral: diminished, prolonged expiration - Cardiovascular Rhythm: regular Heart sounds: normal: S1, S2 Abnormal Heart Sounds: Absent: S3 Gallop - Gastrointestinal General gastrointestinal: Present: soft. Absent: tenderness - Integumentary Integumentary: Absent: rash - Psychiatric Psychiatric: Present: A&O x's 3 - Labs CBC & Chem 7: 01/07/20 20:15 01/07/20 20:15 Labs: Microbiology - Last 24 Hours (Table) 01/08/20 15:20 Gram Stain - Preliminary Sputum Sputum Culture - Preliminary 01/07/20 20:15 Blood Culture - Preliminary Blood No Growth after 24 hours Assessment and Plan (1) COPD exacerbation Current Visit: Yes Status: Acute Code(s): J44.1 - CHRONIC OBSTRUCTIVE PULMONARY DISEASE W (ACUTE) EXACERBATION SNOMED Code(s): 700960671 Plan: continue current regimen of treatment. Check CBC and CMP in a.m. Appreciate pulmonology input.
[2020-01-09] MEDS: IPRATROPIUM-ALBUTEROL 3 ML NEB INHALATION SCH ×4 (08:29→19:57)
[2020-01-09] MEDS: ATORVASTATIN 20 MG TAB PO SCH (08:47)
[2020-01-09] MEDS: ASPIRIN 81 MG PO SCH (08:47)
[2020-01-09] MEDS: amLODIPine 10 MG TAB PO SCH (08:47)
[2020-01-09] MEDS: LISINOPRIL 20 MG TAB PO SCH (08:47)
[2020-01-09] MEDS: ENOXAPARIN 40 MG/0.4 ML SYRINGE SQ SCH (08:47)
[2020-01-09] MEDS: guaiFENesin-DM 100-10MG/5ML 10 ML CUP PO SCH ×3 (08:48→23:04)
[2020-01-09] MEDS: TAMSULOSIN 0.4 MG CAP.ER.24H PO SCH (08:48)
[2020-01-09] MEDS: AZITHROMYCIN 500 MG TAB PO SCH (08:48)
[2020-01-09] MEDS: ZINC SULFATE 220 MG CAP PO SCH (08:48)
[2020-01-09] MEDS: FAMOTIDINE 20 MG/2 ML VIAL IV SCH ×2 (08:48→20:30)
[2020-01-09] MEDS: POTASSIUM CITRATE PO SCH (08:49)
[2020-01-09 09:02] LABS: African American GFR (CKD) >90 (>60 ml/min/1.73 sqM); Anion Gap 12 mmol/L; Blood Urea Nitrogen 26 mg/dL (9-20); Calcium 9.2 mg/dL (8.4-10.2); Carbon Dioxide 24 mmol/L (22-30); Chloride 98 mmol/L (98-107); Glucose 112 mg/dL (74-99); Non-African American GFR(CKD) >90 (>60 ml/min/1.73 sqM); Potassium 4.7 mmol/L (3.5-5.1); Sodium 134 mmol/L (137-145)
[2020-01-09] MEDS ORDERED: ALPRAZolam 0.25 MG TAB PO PRN (10:45)
[2020-01-09 11:51] LABS: Glucose,Whole Blood 122 mg/dL (75-99)
[2020-01-09] MEDS: INSULIN ASPART (NovoLOG) 100 UNIT/ML VIAL SQ SCH ×3 (11:54→20:59)
--- NOTE | 2020-01-09 15:01 | P.PN ---
Subjective Progress Note Date: 01/09/20 Principal diagnosis: Acute exacerbation of chronic obstructive pulmonary disease 69-year-old male patient, who was hospitalized yesterday because of worsening shortness of breath. The patient was diagnosed with COPD exacerbation and was admitted to the hospital for that reason to optimize his overall poor status. I had the chance to evaluate this patient my office for the first time on 12/23/2019. He was coming to see me in the office to establish himself as a patient. The patient suffers from COPD and obstructive sleep apnea. He has seen Dr. Valladares and he was not satisfied with his services and he wants establish himself with us in our office. In summary, the patient is a ex-smoker. He cares about [id number] smoking history and the patient has quit smoking and around 2 years ago. He is known to have COPD. I do not have his official PFT, however, based on the reported history tells that he is FEV1 is ranged around 35-38%. He was started on Anoro one inhalation a day in addition to Ventolin rescue inhaler and albuterol updrafts around 3-4 times a day. He is still requiring the albuterol several times a day. He gets some relief while doing his rescue inhalers. 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 He has gained weight over the years and currently he is up to 215 pounds. The patient has exertional dyspnea. Is able to walk longer distances he walks slow. Minimal coffeeand can sputum production. No hemoptysis. No pleurisy. He is latest chest x-ray that was done at [facility] on 08/20/2019 showed no acute cardio pulmonary disease and the findings were essentially within normal limits. No previous hospitalizations for COPD related complications or pneumonias. I reviewed his records. The patient was kept on Anoro 1 inhalation a day and he was asked to use Ventolin metastatic bases addition to albuterol nebulized she was on a when necessary basis. The patient was given a 6 minute walk and he did not qualify for home oxygen as the patient's pulse ox remained above 93%. He was subsequently seen again in our office on 01/05/2024 worsening shortness of breath. He was given prednisone burst taper and doxycycline at [facility] has been switched to Trelegy. Meanwhile, the patient's breathing got worse and the patient was admitted to the hospital for further care. He was having worsening in cough and he felt a snap in his left chest and he felt that he broke a rib. For that reason, he came into the ospital. Chest x-ray showed no evidence of any fractures. No evidence of any pneumonias. Redness to be intact on the x-ray findings. . He is known to have obstructive sleep apnea and is maintained on CPAP at a pressure maximum centimeters of water. He is using dreamware knows low. He has been compliant with his other comorbidities include hypertension, hyperlipidemia, BPH and obesity. He has a white second of 10.9. Correlation profile is within normal limits. Electrodes are all within normal limits. Troponins are negative. COVID 19 evaluation is pending. Chest shows no acute abnormalities. The patient is seen today 01/09/2020 in follow-up on the regular medical floor. He is awake and alert in no acute distress. Currently sitting up in a chair at the bedside. He is breathing easier today compared to yesterday. Still with a loose nonproductive cough. He is maintaining O2 saturations in the upper 90s on 3 L/m per nasal cannula. He is afebrile. Hemodynamically stable. Blood and sputum cultures reveal no growth. Blood glucose 122. He is continued on DuoNeb inhalations, IV Solu-Medrol. Empiric antibiotics in the form of azithromycin. Eden virus not detected. CT angiogram ruled out pulmonary embolism. No evidence of pneumonia. Pro-calcitonin 0.03. Objective - Vital Signs Vital signs: Vital Signs Temp 98.5 F 01/09/20 14:06 Pulse 85 01/09/20 14:06 Resp 22 01/09/20 14:06 BP 129/67 01/09/20 14:06 Pulse Ox 98 01/09/20 14:06 Intake & Output 01/08/20 01/09/20 01/09/20 18:59 06:59 18:59 Intake Total 100 400 Balance 100 400 Intake: Oral 100 400 Other: # Voids 4 1 3 - Exam General Appearance alert pleasant 69-year-old gentleman, no respiratory distress, speech not interrupted by breaths, no dyspnea, no pallor, not cachectic, well nourished, appears well, obesity HEENT no pursed lip breathing, no jugular venous distention, no mucous membrane cyanosis, no perioral cyanosis, mallampati classification: class 1, Chest no barrel chest, no retractions, no sternocleidomastoid muscle contractions, no supraclavicular retractions, no intercostal retractions, no prolonged expiratory wheezing, no decreased air movement, no rhonchi, no hyperinflation, adventitious sounds: Rhonchi bilaterally: midlung tillman, decreased air movement Heart no right ventricular heave, no distant heart sounds, no s3 gallop, (normal) jugular vein: jugular venous distention: by 0cm, (normal) jugular vein GI bowel sounds: hyperactive (borborygmi), bowel sounds: diminished or absent Extremities no cyanosis, no clubbing, no edema Neurologic no decreased mental status, no somnolence, no confusion Assisstive Devices: ambulates with no assitive devices Gait and Mobility: gait WNL, full weight bearing Examination of the skin revealed no evidence of significant rashes, suspicious appearing nevi or other concerning lesions. - Labs CBC & Chem 7: 01/07/20 20:15 01/09/20 07:39 Labs: Abnormal Lab Results - Last 24 Hours (Table) 01/09/20 01/09/20 Range/Units 07:39 11:39 Sodium 134 L (137-145) mmol/L BUN 26 H (9-20) mg/dL Glucose 112 H (74-99) mg/dL POC Glucose (mg/dL) 122 H (75-99) mg/dL Microbiology - Last 24 Hours (Table) 01/08/20 15:20 Gram Stain - Preliminary Sputum Sputum Culture - Preliminary 01/07/20 20:15 Blood Culture - Preliminary Blood No Growth after 24 hours Assessment and Plan Assessment: 1 acute COPD exacerbation with secondary shortness of breath. Ruled out infection such as pneumonia. Ruled out pulmonary embolism. Ruled out Covid 19 infection. 2 severe chronic obstructive pulmonary disease, this patient has severe COPD, currently on Anoro one inhalation a day in addition to Ventolin rescue inhaler albuterol updrafts on an as-needed basis. We will perform a full pulmonary function test at a later stage. For now, his condition is stable. He has exertional dyspnea. During a recent evaluation our office, he was changed from Anoro to Trelegy and he was also offered oxygen therapy. 3 obstructive sleep apnea syndrome currently on a CPAP pressure of 9 cm of water. Offered a dreamware nose pillow for the patient to use, medium size. I check her compliance data. He is averaging more than 4 hours and 30% of the time. Averaging more than 5 hours of CPAP use per night. Treatment is successful and his AHI is down to 3.5. Implement the sleep hygiene measures. Continue same CPAP pressures for now. 4 hypertensive disorder 5 hyperlipidemia, inactive in stable 6 benign prostatic hyperplasia , inactive in stable 7 obesity 8 muscular skeletal left-sided chest wall pain, no evidence of any fracture ba sed on x-ray and the CAT scan findings. Plan The patient was seen and evaluated by Dr. Alatorre CT angiogram reviewed Pulmonary embolism ruled out Coronavirus ruled out No acute pneumonia Continue the current treatment plan for COPD Add Symbicort Add Xanax for anxiety Probable discharge in the a.m. We'll continue to follow I, the cosigning physician, performed a history & physical examination of the patient. Lungs sounds with rhonchi bilaterally, diminished. Maintaining good O2 saturations in the 90s on 3 L/m per nasal cannula. I discussed the assessment and plan of care with my nurse practitioner, Melba Israel. I attest to the above note as dictated by her.
[2020-01-09 17:02] LABS: Glucose,Whole Blood 176 mg/dL (75-99)
[2020-01-09 19:34] VITALS: RESP 18
[2020-01-09] MEDS: SYMBICORT 160-4.5 MCG INHALER INHALATION SCH (19:57)
[2020-01-09 20:15] LABS: Glucose,Whole Blood 138 mg/dL (75-99)
[2020-01-09] MEDS: HYDROcodone/APAP 5-325MG 1 EACH TAB PO PRN (23:10)
[2020-01-10] MEDS: methylPREDNISolone SOD SUCCI 125 MG/2 ML VIAL IV SCH (05:28)
[2020-01-10 06:59] LABS: Glucose,Whole Blood 137 mg/dL (75-99)
[2020-01-10] MEDS: INSULIN ASPART (NovoLOG) 100 UNIT/ML VIAL SQ SCH ×2 (07:01→12:07)
[2020-01-10] MEDS: SYMBICORT 160-4.5 MCG INHALER INHALATION SCH (07:08)
[2020-01-10] MEDS: IPRATROPIUM-ALBUTEROL 3 ML NEB INHALATION SCH ×2 (07:08→11:07)
[2020-01-10 07:34] LABS: HCT 44.3 % (39.0-53.0); HGB 14.7 gm/dL (13.0-17.5); MCH 31.2 pg (25.0-35.0); MCHC 33.1 g/dL (31.0-37.0); MCV 94.4 fL (80.0-100.0); Mean Platelet Volume 7.6; Platelet Count 297 k/uL (150-450); RBC 4.69 m/uL (4.30-5.90); RDW 13.7 % (11.5-15.5); WBC 14.7 k/uL (3.8-10.6)
[2020-01-10 08:27] VITALS: BP 121/67; TEMP 98.1
--- NOTE | 2020-01-10 08:34 | P.PN ---
Subjective Principal diagnosis: exacerbation of COPD. This is a continue progress on a 69-year-old white male with history of worsening COPD. He has been prednisone dependent for the last several months intermittently. He states he is frustrated because he is not improving. 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 The patient seems to am going reaction appropriately. Clinically finishing sentences much better today than yesterday. Objective - Vital Signs Vital signs: Vital Signs Temp 98.1 F 01/10/20 07:00 Pulse 86 01/10/20 07:23 Resp 18 01/10/20 07:00 BP 121/67 01/10/20 07:00 Pulse Ox 96 01/10/20 07:00 Intake & Output 01/09/20 01/10/20 01/10/20 18:59 06:59 18:59 Intake Total 400 Balance 400 Intake: Oral 400 Other: Voiding Method Toilet # Voids 3 2 - Constitutional General appearance: Present: average body habitus - EENT Eyes: Absent: abnormal pupil - Neck Neck: Absent: lymphadenopathy - Respiratory Respiratory: bilateral: diminished, prolonged expiration - Cardiovascular Rhythm: regular Heart sounds: normal: S1, S2 Abnormal Heart Sounds: Absent: S3 Gallop - Gastrointestinal General gastrointestinal: Present: soft. Absent: tenderness - Labs CBC & Chem 7: 01/10/20 06:41 01/09/20 07:39 Labs: Abnormal Lab Results - Last 24 Hours (Table) 01/09/20 01/09/20 01/09/20 Range/Units 07:39 11:39 16:43 WBC (3.8-10.6) k/uL Sodium 134 L (137-145) mmol/L BUN 26 H (9-20) mg/dL Glucose 112 H (74-99) mg/dL POC Glucose (mg/dL) 122 H 176 H (75-99) mg/dL 01/09/20 01/10/20 01/10/20 Range/Units 20:13 06:41 06:55 WBC 14.7 H (3.8-10.6) k/uL Sodium (137-145) mmol/L BUN (9-20) mg/dL Glucose (74-99) mg/dL POC Glucose (mg/dL) 138 H 137 H (75-99) mg/dL Microbiology - Last 24 Hours (Table) 01/07/20 20:15 Blood Culture - Preliminary Blood No Growth after 48 hours 01/08/20 15:20 Gram Stain - Preliminary Sputum Sputum Culture - Preliminary Assessment and Plan (1) COPD exacerbation Current Visit: Yes Status: Acute Code(s): J44.1 - CHRONIC OBSTRUCTIVE PULM ONARY DISEASE W (ACUTE) EXACERBATION SNOMED Code(s): 431301501 Plan: continue current regimen of treatment. Appreciate pulmonology input. We'll discharge when cleared by pulmonology.
[2020-01-10] MEDS: ENOXAPARIN 40 MG/0.4 ML SYRINGE SQ SCH (08:46)
[2020-01-10] MEDS: guaiFENesin-DM 100-10MG/5ML 10 ML CUP PO SCH (08:46)
[2020-01-10] MEDS: TAMSULOSIN 0.4 MG CAP.ER.24H PO SCH (08:46)
[2020-01-10] MEDS: ZINC SULFATE 220 MG CAP PO SCH (08:47)
[2020-01-10] MEDS: LISINOPRIL 20 MG TAB PO SCH (08:47)
[2020-01-10] MEDS: ATORVASTATIN 20 MG TAB PO SCH (08:47)
[2020-01-10] MEDS: FAMOTIDINE 20 MG/2 ML VIAL IV SCH (08:47)
[2020-01-10] MEDS: amLODIPine 10 MG TAB PO SCH (08:47)
[2020-01-10] MEDS: AZITHROMYCIN 500 MG TAB PO SCH (08:47)
[2020-01-10] MEDS: ASPIRIN 81 MG PO SCH (08:48)
[2020-01-10] MEDS: POTASSIUM CITRATE PO SCH (08:58)
[2020-01-10 11:25] VITALS: PULSE 86
[2020-01-10 11:47] LABS: Glucose,Whole Blood 116 mg/dL (75-99)
--- NOTE | 2020-01-10 12:44 | P.PN ---
Subjective Progress Note Date: 01/10/20 Principal diagnosis: Acute exacerbation of chronic obstructive pulmonary disease 69-year-old male patient, who was hospitalized yesterday because of worsening shortness of breath. The patient was diagnosed with COPD exacerbation and was admitted to the hospital for that reason to optimize his overall poor status. I had the chance to evaluate this patient my office for the first time on 12/23/2019. He was coming to see me in the office to establish himself as a patient. The patient suffers from COPD and obstructive sleep apnea. He has seen Dr. Valladares and he was not satisfied with his services and he wants establish himself with us in our office. In summary, the patient is a ex-smoker. He cares about [id number] smoking history and the patient has quit smoking and around 2 years ago. He is known to have COPD. I do not have his official PFT, however, based on the reported history tells that he is FEV1 is ranged around 35-38%. He was started on Anoro one inhalation a day in addition to Ventolin rescue inhaler and albuterol updrafts around 3-4 times a day. He is still requiring the albuterol several times a day. He gets some relief while doing his rescue inhalers. 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 He has gained weight over the years and currently he is up to 215 pounds. The patient has exertional dyspnea. Is able to walk longer distances he walks slow. Minimal coffeeand can sputum production. No hemoptysis. No pleurisy. He is latest chest x-ray that was done at [facility] on 08/20/2019 showed no acute cardio pulmonary disease and the findings were essentially within normal limits. No previous hospitalizations for COPD related complications or pneumonias. I reviewed his records. The patient was kept on Anoro 1 inhalation a day and he was asked to use Ventolin metastatic bases addition to albuterol nebulized she was on a when necessary basis. The patient was given a 6 minute walk and he did not qualify for home oxygen as the patient's pulse ox remained above 93%. He was subsequently seen again in our office on 01/05/2024 worsening shortness of breath. He was given prednisone burst taper and doxycycline at [facility] has been switched to Trelegy. Meanwhile, the patient's breathing got worse and the patient was admitted to the hospital for further care. He was having worsening in cough and he felt a snap in his left chest and he felt that he broke a rib. For that reason, he came into the ospital. Chest x-ray showed no evidence of any fractures. No evidence of any pneumonias. Redness to be intact on the x-ray findings. . He is known to have obstructive sleep apnea and is maintained on CPAP at a pressure maximum centimeters of water. He is using dreamware knows low. He has been compliant with his other comorbidities include hypertension, hyperlipidemia, BPH and obesity. He has a white second of 10.9. Correlation profile is within normal limits. Electrodes are all within normal limits. Troponins are negative. COVID 19 evaluation is pending. Chest shows no acute abnormalities. The patient is seen today 01/09/2020 in follow-up on the regular medical floor. He is awake and alert in no acute distress. Currently sitting up in a chair at the bedside. He is breathing easier today compared to yesterday. Still with a loose nonproductive cough. He is maintaining O2 saturations in the upper 90s on 3 L/m per nasal cannula. He is afebrile. Hemodynamically stable. Blood and sputum cultures reveal no growth. Blood glucose 122. He is continued on DuoNeb inhalations, IV Solu-Medrol. Empiric antibiotics in the form of azithromycin. Eden virus not detected. CT angiogram ruled out pulmonary embolism. No evidence of pneumonia. Pro-calcitonin 0.03. The patient is seen today 01/10/2020 in follow-up on the regular medical floor. He is currently sitting up in a chair at the bedside. Awake and alert in no acute distress. He is doing quite a bit better as far as his breathing is concerned. Nearly back to his baseline. He is maintaining good O2 saturations in the mid 90s on 3 L/m per nasal cannula. His been afebrile. Hemodynamically stable. Blood cultures reveal no growth. Sputum culture reveals no growth. White count 14.7. Hemoglobin 14.7. Glucose 137. He's been maintained on DuoNeb inhalations, Symbicort, IV Solu-Medrol. Objective - Vital Signs Vital signs: Vital Signs Temp 98.1 F 01/10/20 07:00 Pulse 86 01/10/20 11:24 Resp 18 01/10/20 07:00 BP 121/67 01/10/20 07:00 Pulse Ox 96 01/10/20 07:00 Intake & Output 01/09/20 01/10/20 01/10/20 18:59 06:59 18:59 Intake Total 400 240 Balance 400 240 Intake: Oral 400 240 Other: Voiding Method Toilet # Voids 3 2 - Exam General Appearance alert pleasant 69-year-old gentleman, maintaining O2 saturations in the mid 90s on 3 L/m per nasal cannula, no respiratory distress, speech not interrupted by breaths, no dyspnea, no pallor, not cachectic, well nourished, appears well, obesity HEENT no pursed lip breathing, no jugular venous distention, no mucous membrane cyanosis, no perioral cyanosis, mallampati classification: class 1, Chest no barrel chest, no retractions, no sternocleidomastoid muscle contractions, no supraclavicular retractions, no intercostal retractions, no prolonged expiratory wheezing, no rhonchi, no hyperinflation, adventitious sounds: Rhonchi bilaterally: midlung tillman, decreased air movement Heart no right ventricular heave, no distant heart sounds, no s3 gallop, jugular vein: jugular venous distention: by 0cm GI bowel sounds: hyperactive (borborygmi), bowel sounds: diminished or absent Extremities no cyanosis, no clubbing, no edema Neurologic no decreased mental status, no somnolence, no confusion Assisstive Devices: ambulates with no assitive devices Gait and Mobility: gait WNL, full weight bearing Examination of the skin revealed no evidence of significant rashes, suspicious appearing nevi or other concerning lesions. - Labs CBC & Chem 7: 01/10/20 06:41 01/09/20 07:39 Labs: Abnormal Lab Results - Last 24 Hours (Table) 01/09/20 01/09/20 01/10/20 Range/Units 16:43 20:13 06:41 WBC 14.7 H (3.8-10.6) k/uL POC Glucose (mg/dL) 176 H 138 H (75-99) mg/dL 01/10/20 01/10/20 Range/Units 06:55 11:33 WBC (3.8-10.6) k/uL POC Glucose (mg/dL) 137 H 116 H (75-99) mg/dL Microbiology - Last 24 Hours (Table) 01/08/20 15:20 Gram Stain - Final Sputum Sputum Culture - Final 01/07/20 20:15 Blood Culture - Preliminary Blood No Growth after 48 hours Assessment and Plan Assessment: 1 acute COPD exacerbation with secondary shortness of breath. Ruled out infection such as pneumonia. Ruled out pulmonary embolism. Ruled out Covid 19 infection. 2 severe chronic obstructive pulmonary disease, this patient has severe COPD, currently on Anoro one inhalation a day in addition to Ventolin rescue inhaler albuterol updrafts on an as-needed basis. We will perform a full pulmonary function test at a later stage. For now, his condition is stable. He has exertional dyspnea. During a recent evaluation our office, he was changed from Anoro to Trelegy and he was also offered oxygen therapy. 3 obstructive sleep apnea syndrome currently on a CPAP pressure of 9 cm of water. Offered a [employer] nose pillow for the patient to use, medium size. I check her compliance data. He is averaging more than 4 hours and 30% of the time. Averaging more than 5 hours of CPAP use per night. Treatment is successful and his AHI is down to 3.5. Implement the sleep hygiene measures. Continue same CPAP pressures for now. 4 hypertensive disorder 5 hyperlipidemia, inactive in stable 6 benign prostatic hyperplasia , inactive in stable 7 obesity 8 muscular skeletal left-sided chest wall pain, no evidence of any fracture based on x-ray and the CAT scan findings. Plan The patient was seen and evaluated by Dr. Alatorre He is cleared for discharge from the pulmonary standpoint Continue his home prednisone taper Continue his home antibiotics Continue theophylline Continue Trelegy Continue nebulized treatments as needed Continue home oxygen Keep scheduled appointment with Dr. Viraj Go, the cosigning physician, performed a history & physical examination of the patient. Lungs sounds with rhonchi bilaterally, diminished. Maintaining good O2 saturations in the 90s on 3 L/m per nasal cannula. I discussed the assessment and plan of care with my nurse practitioner, Melba Israel. I attest to the above note as dictated by her.
== END 2020-01-10 14:50 | disposition home or self-care (01) | DRG 190 ==
LOC: EC 19:48 → 4SSUR 23:30
PROVIDERS: ADMIT Family Medicine; ATTEND Family Medicine
DX: J44.1 Chronic obstructive pulmonary disease with (acute) exacerbation (principal); J96.01 Acute respiratory failure with hypoxia; E66.9 Obesity, unspecified; E78.5 Hyperlipidemia, unspecified; G47.33 Obstructive sleep apnea (adult) (pediatric); I10 Essential (primary) hypertension; N40.0 Benign prostatic hyperplasia without lower urinary tract symptoms; R26.2 Difficulty in walking, not elsewhere classified; R07.89 Other chest pain; Z20.828 Contact with and (suspected) exposure to other viral communicable diseases; Z79.52 Long term (current) use of systemic steroids; Z79.82 Long term (current) use of aspirin; Z79.899 Other long term (current) drug therapy; Z87.891 Personal history of nicotine dependence; Z68.30 Body mass index [BMI] 30.0-30.9, adult
CPT/HCPCS: 36415; 71046; 71275; 80048; 83605; 84145; 84484; 85025; 85027; 85610; 85730; 87040; 87070; 87205; 87635; 93005; 94640; 96361; 96374; 96375; 99285

== ENCOUNTER → 2021-01-17 | Outpatient (CLI) | payer MEDICARE ==
--- NOTE | 2021-01-17 12:41 | CTL ---
EXAMINATION TYPE: CT Low Dose Lung DATE OF EXAM ORDERED: 01/17/2021 HISTORY: Long-term tobacco use. Lung cancer screening CT DLP: 138.[address] CTDI: 3.7 mGy Automated exposure control for dose reduction was used. SCREENING VISIT: First after baseline COMPARISON: Prior study December 2018 and CTA chest January 08, 2020 TECHNIQUE: Low dose computed tomography scan was performed through the chest at 1 mm thick sections a nd reconstructed images in the coronal plane at [address] DIAGNOSTIC QUALITY: Satisfactory FINDINGS: LUNG NODULES: None. LUNGS: COPD: Severity: Mild Fibrosis: Severity: Mild scattered Lymph nodes: No greater than 1 cm Other findings: None RIGHT PLEURAL SPACE: Effusion: None Calcification: None Thickening: None Pneumothorax: None LEFT PLEURAL SPACE: Effusion: None Calcification: None Thickening: None Pneumothorax: None HEART: Heart Size: Normal Coronary calcification: Mild to moderate Pericardial effusion: None OTHER FINDINGS: Upper abdomen: None Bony thorax: Slight scoliotic curvature with mild to moderate multilevel spurring Supraclavicular region: None Other: None IMPRESSION: No new nodules. CT LUNG RAD AND CT CHEST RECOMMENDATION: Lung-Rad 1 Negative: Continue annual screening with LDCT in 12 months. S Modifier (other clinically significant findings): None
== END | disposition home or self-care (01) ==
LOC: RADCTMAIN 11:41
PROVIDERS: ATTEND Family Medicine
DX: Z12.2 Encounter for screening for malignant neoplasm of respiratory organs (principal); Z72.0 Tobacco use
CPT/HCPCS: 71271

== ENCOUNTER → 2022-01-21 | Outpatient (CLI) | payer MEDICARE ==
--- NOTE | 2022-01-21 10:21 | CTL ---
EXAMINATION TYPE: CT Low Dose Lung DATE OF EXAM ORDERED: 01/21/2022 HISTORY: Long-term tobacco use. Lung cancer screening CT DLP: 144.[address] CTDI: 3.9 mGy Automated exposure control for dose reduction was used. SCREENING VISIT: Second after baseline COMPARISON: Prior studies 2020 and 2018 TECHNIQUE: Low dose computed tomography scan was performed through the chest at 1 mm thick sections a nd reconstructed images in multiple planes at 1 mm and [address] DIAGNOSTIC QUALITY: Satisfactory FINDINGS: LUNG NODULES: None. LUNGS: COPD: Severity: None Fibrosis: Severity: Mild scattered Lymph nodes: No greater than 1 cm Other findings: None RIGHT PLEURAL SPACE: Effusion: None Calcification: None Thickening: None Pneumothorax: None LEFT PLEURAL SPACE: Effusion: None Calcification: None Thickening: None Pneumothorax: None HEART: Heart Size: Normal Coronary calcification: Mild to moderate Pericardial effusion: None OTHER FINDINGS: Upper abdomen: None Bony thorax: Slight scoliotic curvature with mild to moderate multilevel spurring is redemonstrated. Supraclavicular region: None Other: None IMPRESSION: No new nodules. CT LUNG RAD AND CT CHEST RECOMMENDATION: Lung-Rad 1 Negative: Continue annual screening with LDCT in 12 months. S Modifier (other clinically significant findings): None
== END | disposition home or self-care (01) ==
LOC: RADCTMAIN 08:54
PROVIDERS: ATTEND Family Medicine
DX: Z12.2 Encounter for screening for malignant neoplasm of respiratory organs (principal); R91.8 Other nonspecific abnormal finding of lung field; F17.210 Nicotine dependence, cigarettes, uncomplicated
CPT/HCPCS: 71271

== ENCOUNTER → 2023-01-22 | Outpatient (CLI) | payer MEDICARE ==
--- NOTE | 2023-01-27 08:35 | CTL ---
EXAMINATION TYPE: CT Low Dose Lung DATE OF EXAM ORDERED: 01/22/2023 HISTORY: 72-year-old male personal history of tobacco use, former smoker with 55 pack-year history. L christine cancer screening CT DLP: [address] CTDI: 2.33 mGy Automated exposure control for dose reduction was used. SCREENING VISIT: Annual follow-up COMPARISON: 01/21/2022 TECHNIQUE: Low dose computed tomography scan was performed through the chest with coronal and sagitta l reconstructions. CT DIAGNOSTIC QUALITY: Satisfactory FINDINGS: The heart is upper limits of normal in size without pericardial effusion. Prominent epicardial fat pa d again noted. Ectatic ascending aorta 3.7 cm unchanged. Mild atherosclerotic arch calcifications with conventional arch also branching anatomy. Borderline caliber to the main right and left pulmonary arteries measuring up to 2.5 cm suggests unde rlying pulmonary arterial hypertension. No thoracic lymphadenopathy identified. Moderate diffuse bronchial wall thickening. Scattered mild emphysematous change. Some strandy scarrin g at the lateral right midlung is unchanged. No suspicious pulmonary nodules are seen. Very limited assessment of the upper abdomen due to low dose noncontrast technique and patient's larg e body habitus. Bones: No osseous destructive process. Mild degenerative disc disease lower thoracic spine. IMPRESSION: 1. LungRADS 2, benign; no suspicious pulmonary nodules seen. 2. COPD with mild emphysema. CT LUNG RAD AND CT CHEST RECOMMENDATION: Lung-Rad 2 Benign Appearance or Behavior: Continue annual sc reening with LDCT in 12 months. S Modifier (other clinically significant findings): None
== END | disposition home or self-care (01) ==
LOC: RADCTMAIN 13:09
PROVIDERS: ATTEND Family Medicine
DX: Z12.2 Encounter for screening for malignant neoplasm of respiratory organs (principal); J43.9 Emphysema, unspecified; Z87.891 Personal history of nicotine dependence
CPT/HCPCS: 71271

== ENCOUNTER → 2023-07-10 | Outpatient (CLI) | payer MEDICARE ==
[~2023-07-10] MED LIST: REGADENOSON 0.4 MG/5 ML SYRINGE IV PRN
--- NOTE | 2023-07-10 12:02 | CA ---
Lexiscan Nuclear Stress Test Report Name: Aric Padron Exam Date: 07/10/2023 09:08 Exam Location: [facility] Ht (in): 69 Wt (lb): 210 BSA: 2.11 Ordering Phys: Edi Mcdonald MD Referring Phys: SAMIRA, Technologist: CHUYITA,, Age: 72 Gender: M : 1950 Procedure CPT: Indications: I10 Essential Hypertension ICD-10 Codes: Patient History: Shortness of breath Medications: Meds past 24 hrs: Pretest Chest Pain: STRESS TEST Lexiscan Protocol Exercise Duration (min:sec): 02:[address] Depressions (mm): Angina Score: Leon Score: Resting HR (bpm): 56 Peak HR (bpm): 79 Resting BP (mmHg): 141 / 70 Peak BP (mmHg): 138 / 66 MPHR: 149 Target HR: 127 % MPHR: 53 METS: 1.0 Total Dose: Peak Dose: Atropine: Double Product: 97546 BP Response: Stress Termination: Infusion complete Stress Symptoms: No chest pain or symptoms Stress Summary: ECG ANALYSIS Resting ECG: Stress ECG: CONCLUSIONS Baseline EKG revealed a normal sinus rhythm without significant ST-T changes. With Lexiscan administration as per protocol heart rate went up from 59-78 bpm and the blood pressure changed from 141/70-129/76. Patient was asymptomatic and EKG was unremarkable. By EKG criteria this is a unremarkable Lexiscan stress test. The nuclear scan results which are more pertinent will be reported with radiologist Dr. Jose Cerda MD (Electronically Signed) Final Date: 10 July 2023 12:01
--- NOTE | 2023-07-10 13:00 | NM ---
EXAMINATION TYPE: NM stress lexiscan cardiolite DATE OF EXAM: 07/10/2023 COMPARISON: NONE CLINICAL INDICATION: Male, 72 years old with history of I10 Essential hypertension; TECHNIQUE: After the intravenous administration of 10.5 mCi Tc 99m Sestamibi - Cardiolite resting SP ECT images acquired 75 minutes post injection. The patient received 0.4mg Lexiscan, 26 mCi Tc 99m Sestamibi - Stress images obtained 45 minutes post injection FINDINGS: Review of stress and rest SPECT images demonstrates no distinct perfusion abnormality. Gated analysi s shows normal wall motion with an estimated left ventricular ejection fraction of 58 %. IMPRESSION: No scintigraphic evidence for reversible ischemia.
== END | disposition home or self-care (01) ==
LOC: RADNMMAIN 07-03 07:45
PROVIDERS: ATTEND Family Medicine
DX: I10 Essential (primary) hypertension (principal)
CPT/HCPCS: 93017; 78452; A9500; J2785

== ENCOUNTER 2023-12-08 19:24 | Outpatient (CLI) | payer MEDICARE ==
--- NOTE | 2023-12-14 17:42 | P.PCN ---
Date of Procedure: 12/08/23 Operative Findings: CPAP titration study Date of service is 12/08/2023 History This is a 73-year-old male patient with severe COPD and obstructive sleep apnea who has been treated with a CPAP pressure of 9 cm of water. The patient was utilizing a [employer]Med VPAP auto which is functional. During his last evaluation, he was switched to a VPAP auto mode and an EPAP minimum of 5 and maximum 14 and a pressure support of 4. He was also using an AirFit F20 fullface mask. To assess the adequacy of the treatment, a titration was ordered. The patient has hypertension, hyperlipidemia, BPH, restless leg syndrome maintained on Requip. Pertinent physical findings Patient's height is 5 feet and 3 inches, weight is 166 pounds with a BMI of 29.4 Technical description The patient was studied using a standard complex polysomnography protocol that included recording of the 2 EKG, Central, occipital and frontal EEG, right and left outer canthus EOG, submental EMG, right and left anterior tibialis EMG, respiratory airflow by thermocouple and or pressure/flow transducer, respiratory efforts by abdominal and thoracic PVDF belts, oxygen saturation by cable oximetry. Position by observation synchronized the PSG. Stepwise CPAP titration was done to eliminate obstructive respiratory events. Equipment used: [employer]. Sleep architecture The total recording duration was 407.5 minutes. The total sleep time was 300 minutes and the wake after sleep onset time was 98.5 minutes. The overall sleep efficiency was 73.6%. The latency to sleep onset was 8.5 minutes. The latency to REM sleep was 187.0 minutes. The sleep architecture was catheterized by 0.8% stage I, 62.7% stage II, 4.2% stage III and 32.3% REM sleep. The total arousal index was 19.2 Respiratory events The patient was started on CPAP therapy initially at a pressure of 5 cm of water pressure was gradually increased by increments of 1 cm patient CPAP pressure of 9 cm of water. Oxygen was also added during the process at 2 L. Noted at a pressure of 9 cm of water, the patient had adequate control and illumination of the obstructive respiratory events without any oxygen desaturations. This was successful titration and the patient has completed ablation of the obstructive respiratory events in various sleep stages and body positions. Study was done in the REM and non-REM sleep. Oxygenation analysis No significant desaturations were encountered in the CPAP pressure of 9 cm of water and while being on O2 at 2 L Arousal events There was a total of 96 arousals with an index of 19.2. Respiratory arousal index was 0.2. Periodic limb movements The patient had a total of 20 periodic movement activity with an index of 4.0. There was 17. Active movement activity with arousals with an index of 17 Cardiac summary Average heart rate was 59 1157 and a maximum heart rate of 63 Assessment Obstructive sleep apnea the patient underwent a successful CPAP titration. Noted the patient was utilizing a VPAP auto on outpatient basis. He originally received a BiPAP machine from a friend. He is told that the settings were not properly adjusted. I switched him to a VPAP auto and despite that he continued to have some difficulties. He was given the titration accordingly. Plan Treat this patient with CPAP at a pressure of 9 cm of water along with O2 at 2 L. The patient was provided the appropriate mask interface. Patient be given a medium size AirFit F20 fullface mask. The patient was seen back in the office for a compliancy check in 30 to 90 days. Alternatively, his VPAP auto can be utilized with his CPAP. If not willing to update his machine, he is VPAP auto can be utilized in his CPAP mode at a pressure of 9 cm of water along with O2 at 2 L.
== END 2023-12-09 05:50 | disposition home or self-care (01) ==
LOC: 3 N SLEEP 19:24
PROVIDERS: ATTEND Internal Medicine Critical Care Medicine
DX: G47.33 Obstructive sleep apnea (adult) (pediatric) (principal); Z87.891 Personal history of nicotine dependence
CPT/HCPCS: 95811

== ENCOUNTER → 2024-01-28 | Outpatient (CLI) | payer MEDICARE ==
--- NOTE | 2024-01-28 14:05 | CTL ---
EXAMINATION TYPE: CT Low Dose Lung DATE OF EXAM ORDERED: 01/28/2024 History: Lung cancer screening CT DLP: 161.[address] CTDI: 3.9 mGy Automated exposure control for dose reduction was used. Comparison: 01/22/2023 TECHNIQUE: Low dose computed tomography scan was performed through the chest at 1 mm thick sections a nd reconstructed images in multiple planes at 1 mm and [address] DIAGNOSTIC QUALITY: Satisfactory FINDINGS: There is no suspicious lung masses or nodules. There is no abnormal airspace/consolidative density or abnormal interstitial density. There is no pleural effusion, pleural thickening or pneumothorax. The heart and great vessels the chest are normal and there is no mediastinal, hilar or axillary adeno andreas. Limited scanning through the upper abdomen reveals no gross abnormality. No focal osseous lesions are seen. IMPRESSION: 1. Lung metastases category 1 negative. Continue routine screening yearly intervals. 2. No acute cardiopulmonary disease.
== END | disposition home or self-care (01) ==
LOC: RADCTMAIN 12:06
PROVIDERS: ATTEND Family Medicine
DX: Z12.2 Encounter for screening for malignant neoplasm of respiratory organs (principal); Z87.891 Personal history of nicotine dependence
CPT/HCPCS: 71271

== ENCOUNTER → 2025-01-30 | Outpatient (CLI) | payer MEDICARE ==
--- NOTE | 2025-01-30 11:22 | CTL ---
EXAMINATION TYPE: CT Low Dose Lung DATE OF EXAM ORDERED: 01/30/2025 COMPARISON: Multiple CT Low Dose Lung with most recent 01/28/2024 CLINICAL INDICATION: Male, 74 years old with history of Z12.2 SCREENING LUNG CA Z87.891 FORMER SMO[employer] ; [facility], Former smoker, quit 2018. 1-2 PPD x 55 years., Lung cancer screening, History of Smoking/tobac co use. TECHNIQUE: Low dose computed tomography scan was performed through the chest at 1 mm thick sections a nd reconstructed images in multiple planes at 1 mm and [address] DLP: [address] CTDI: 3.7 mGy Automated exposure control for dose reduction was used. CT DIAGNOSTIC QUALITY: Satisfactory FINDINGS: Nodules: New pulmonary nodular opacity within the right lower lobe measuring up to 8 mm (series 6, image 31). Additional new linear pulmonary opacity within the superior segment of the right lower lobe measuring up to 10 mm (series 6, image 27). LUNGS: COPD: Severity: None Fibrosis: Severity: None Lymph nodes: None Other findings: None RIGHT PLEURAL SPACE: Effusion: None Calcification: None Thickening: None Pneumothorax: None LEFT PLEURAL SPACE: Effusion: None Calcification: None Thickening: None Pneumothorax: None HEART: Heart Size: Normal Coronary Calcification: Small Pericardial Effusion: None OTHER FINDINGS: Upper abdomen: None Bony thorax: Ununited remote fracture versus surgical change involving the left posterior lateral 10t h rib. Multilevel degenerative disc disease. Supraclavicular region: None Other: Mild atherosclerotic calcification of the aorta and its branches. IMPRESSION: Couple of new right lower lobe pulmonary nodular opacities. May represent infectious/infl ammatory nodules. CT LUNG RAD AND CT CHEST RECOMMENDATION: Lung-Rad 4A Suspicious: Follow-up 3 month LDCT or PET/CT may be used when there is a > 8 mm solid component. S Modifier (other clinically significant findings): None [facility], , 01/30/2025 11:20 AM
== END | disposition home or self-care (01) ==
LOC: RADCTMAIN 10:26
PROVIDERS: ATTEND Internal Medicine Critical Care Medicine
DX: Z12.2 Encounter for screening for malignant neoplasm of respiratory organs (principal); R91.8 Other nonspecific abnormal finding of lung field; Z87.891 Personal history of nicotine dependence
CPT/HCPCS: 71271